=== PATIENT | male | born 1985 | race Caucasian/White ===

== ENCOUNTER 2020-02-18 10:27 | Emergency (ER) | payer BC, SELFPAY ==
--- NOTE | 2020-02-18 | XR_ITS ---
EXAMINATION: XR HAND, LEFT CLINICAL INFORMATION: Left hand injury with swelling and pain COMPARISON: None TECHNIQUE: PA, lateral, and oblique views of the left hand. FINDINGS: There appears be a nondisplaced fracture involving the base of the fourth metacarpal. No dislocation is evident. There is large amount soft tissue swelling seen about the dorsum of the hand and wrist. XR/XR hand LT min 3V IMPRESSION: Probable nondisplaced fracture base of the fourth metacarpal. Clinical correlation to site of injury is suggested as there is no indication within the requisition as to where the injury or pain is.
[2020-02-18 11:04] VITALS: BP 130/77; PULSE 90; RESP 18; TEMP 36.9; O2SAT 98; BMI 25.0
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
--- NOTE | 2020-02-18 11:48 | PC.NURSE ---
AMIRAH L HAND. SPLINTED BY PCT WITH GOOD DISTAL CMS
== END 2020-02-18 11:52 | disposition home or self-care (01) ==
PROVIDERS: Emergency Provider Emergency Medicine; PCP Family Medicine
DX: S62.345A Nondisplaced fracture of base of fourth metacarpal bone, left hand, initial encounter for closed fracture (principal); M79.642 Pain in left hand; V43.52XA Car driver injured in collision with other type car in traffic accident, initial encounter; Y93.9 Activity, unspecified; Y92.410 Unspecified street and highway as the place of occurrence of the external cause; Y99.9 Unspecified external cause status; Z79.899 Other long term (current) drug therapy
CPT/HCPCS: 29125; 73130; 99282; 99284

== ENCOUNTER → 2020-02-22 12:26 | Outpatient (BNVA) | payer BC, SELFPAY | PROVIDERS: Visit Provider Physician Assistant | DX: S62.345A Nondisplaced fracture of base of fourth metacarpal bone, left hand, initial encounter for closed fracture (principal) | CPT/HCPCS: 26600; 29085 ==

== ENCOUNTER 2020-03-15 11:09 | Outpatient (REF) | payer BC, SELFPAY ==
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
== END 2020-03-15 11:10 | disposition home or self-care (01) ==
LOC: HO.HOSX 11:09
PROVIDERS: Visit Provider Physician Assistant
DX: S62.309D Unspecified fracture of unspecified metacarpal bone, subsequent encounter for fracture with routine healing (principal)
CPT/HCPCS: 73130

== ENCOUNTER 2020-07-05 17:26 | Inpatient (IN) | payer BC, SELFPAY ==
--- NOTE | ~2020-07-05 | CT_ITS ---
EXAMINATION: CT ABDOMEN AND PELVIS WITH CONTRAST CLINICAL INFORMATION: RLQ abdominal pain, r/o acute appy COMPARISON: None TECHNIQUE: Multidetector volumetric images were obtained from the superior aspect of the liver through the pubic symphysis following administration 85 mL of Omnipaque 350 intravenous contrast. Sagittal and coronal reformatted images were obtained on the technologist's workstation. Oral contrast: No This CT examination was performed using dose optimization techniques as appropriate, variously including the following: *Automated exposure control *Adjustment of mA and/or kV according to patient size (this includes techniques or standardized protocols for targeted exams where dose is matched to indication/reason for exam; i.e. extremities or head) *Use of iterative reconstruction technique DLP: 501. mGy-cm FINDINGS: LUNG BASES: Minimal dependent atelectasis. LIVER, GALLBLADDER, AND BILIARY TREE: The liver is normal in size, shape, and attenuation. No focal hepatic lesion or biliary ductal dilatation is present. The gallbladder is unremarkable with no evidence of radiopaque gallstones, gallbladder wall thickening, or obvious pericholecystic inflammatory changes. PANCREAS: Unremarkable. SPLEEN: Unremarkable. ADRENAL GLANDS: Unremarkable. KIDNEYS AND URETERS: The kidneys are normal in size, shape, and attenuation. No hydronephrosis, hydroureter, or calculi seen. No perinephric stranding. BLADDER: Unremarkable. GASTROINTESTINAL TRACT: The appendix is markedly thickened (1.5 cm) with significant surrounding fat stranding and trace surrounding fluid. No intraperitoneal free air. Stomach, small bowel, and colon are otherwise normal in caliber without wall thickening or abnormal fat stranding. ABDOMINAL WALL: No significant hernia is appreciated. LYMPH NODES: Normal. VASCULAR: Unremarkable. PELVIC VISCERA: Unremarkable. OSSEOUS STRUCTURES: Unremarkable. CT/CT abdomen pelvis w con IMPRESSION: Acute appendicitis. A small amount of surrounding dense periappendiceal fluid may correspond to reactive inflammation or a contained perforation. No extraluminal bowel gas or free fluid.
[2020-07-05 17:44] VITALS: BP 127/80; PULSE 86; RESP 18; TEMP 37.4; O2SAT 100; BMI 25.6
--- NOTE | 2020-07-05 18:37 | ED_ITS ---
HPI - Abdominal Pain General Chief Complaint: Abdominal Pain Stated Complaint: Abdominal pain Time Seen by Provider: 07/05/20 18:03 Source: patient Mode of arrival: ambulatory Limitations: no limitations History of Present Illness HPI narrative: 35-year-old male previously healthy here with right-sided abdominal pain since yesterday. The patient tells me that yesterday he started to have some discomfort around his umbilicus but today the pain is migrated to his right lower abdomen. There is no associated nausea or vomiting. No fevers, chills, diarrhea, constipation or urinary symptoms. No previous surgical history. He last ate food at 12:00 o'clock today. Related Data Previous Rx's Medication Instructions Recorded cyclobenzaprine 10 mg PO TID PRN #14 tab 02/18/20 ibuprofen 600 mg PO Q6H PRN #30 tab 02/18/20 Allergies Allergy/AdvReac Type Severity Reaction Status Date / Time mateus [MATEUS] Allergy Mild ANAPHYLAXIS Verified 03/15/20 11:16 Review of Systems Review of Systems Yes all other systems are reviewed and are negative Constitutional: Reports no additional constitutional complaints, Denies body ache(s), Denies chills, Denies fever(s), Denies headache(s) and Denies weakness Eyes: Reports no additional eye complaints and Denies change in vision Reports system reviewed and no additional complaints, except as documented, Denies dizziness, Denies headache(s), Denies nasal congestion, Denies nasal discharge and Denies neck pain Cardiovascular: Reports no additional cardiovascular complaints, Denies chest pain, Denies leg edema and Denies dyspnea Respiratory: Reports no additional respiratory complaints, Denies cough and Denies dyspnea Gastrointestinal: Reports no additional gastrointestinal complaints, Reports abdominal pain, Denies diarrhea, Denies nausea and Denies vomiting Genitourinary: Denies urinary incontinence Musculoskeletal: Reports no additional musculoskeletal complaints, Denies back pain, Denies arthralgias, Denies joint swelling, Denies neck pain, Denies numbness and Denies tingling Skin/Breast: Reports system reviewed and no additional complaints, except as docu and Denies rash Reports system reviewed and no additional complaints, except as documented, Denies Abnormal speech present, Denies dizziness, Denies headache(s), Denies numbness, Denies tingling and Denies weakness Physical Exam Vital Signs: Vital Signs: Last Vital Signs Temp 99.4 F 07/05/20 17:44 Pulse 86 07/05/20 17:44 Resp 18 07/05/20 18:46 BP 127/80 07/05/20 17:44 Pulse Ox 100 07/05/20 17:44 Body Mass Index 25.6 Const: General: cooperative, healthy appearing, comfortable and no acute distress Orientation/consciousness: patient oriented x3 Limitations: no limitations HENMT: Head: Yes normal to inspection Ears: hearing grossly normal bilaterally General nose exam: Normal external nose present Face and sinus: Yes normal facial exam Mouth: Normal oral and palatal mucosa present Throat: Yes posterior oropharynx normal Eyes: General: appearance normal, both eyes and all related structures Pup ils: Equal, round and reactive pupils present Neck: Neck: Yes normal visual inspection Chest: Chest palpation & inspection: normal inspection of the chest Resp: Effort & Inspection: normal respiratory effort Auscultation: clear to auscultation bilaterally Cardio: Rate: regular rate Rhythm: regular rhythm Peripheral pulses: Peripheral pulses 2+ throughout GI: Inspection: Yes normal to inspection Palpation (GI): Soft to palpation and Tenderness to palpation present (GI) (Moderate right lower quadrant with rebound and guarding) Auscultation: normal bowel sounds Back/Spine/Pelvis: Thoracic/Lumbar Spine: thoracic and lumbar spine normal to inspection Skin: General skin exam: no rashes or lesions noted Neuro: General: patient oriented x3, no focal motor deficits and normal sensation to monofilament Cranial nerves: Yes Equal, round and reactive pupils present Cognition (Neuro): normal cognition Speech: No Abnormal speech present Gait exam (Neuro): Normal gait present Motor exam (neuro): 5/5 motor strength present throughout Extrem: General: Yes normal to inspection Course Course Course Narrative: 35-year-old male here with right lower quadrant abdominal pain since yesterday with no other associated symptoms. On exam has moderate tenderness with rebound and guarding. Will need labs, UA, COVID screen and CT abdomen and pelvis to rule out acute appendicitis. 2039-CT shows acute appendicitis. A small amount of surrounding dense periappendiceal fluid may correspond to reactive inflammation or contained pe rforation. No extraluminal bowel gas or free fluid. Patient has a leukocytosis of 12,000 with a shift. At this time infection is suspected. Blood cultures and lactic acid ordered. Antibiotics ordered. Discussed patient with Dr. Styles as who accepted admission. MDM - Abdominal Pain MDM Narrative Medical decision making narrative: appendicitis, cholecystitis, diverticulitis Medical Records Attestation: I reviewed the patient's medical records. Lab Data Attestation: I reviewed the patient's lab results. Result diagrams: 07/05/20 18:39 07/05/20 18:39 Labs: Lab Results 07/05/20 07/05/20 07/05/20 Range/Units 18:39 18:39 18:39 WBC 12.6 H (4.8-10.8) X10*3/uL RBC 4.60 (4.60-5.80) X10*6/uL Hgb 14.5 (14.0-18.0) g/dl Hct 44.0 (42-52) % MCV 95.7 (80-98) fL MCH 31.5 (27.0-33.0) pg MCHC 33.0 (31.0-36.0) g/dl RDW 13.1 (11.0-16.0) % Plt Count 218 (160-400) X10*3/uL MPV 10.4 (9.4-12.4) fL Immature Gran % (Auto) 0.4 (0.0-0.4) % Neut % (Auto) 76.7 H (45-73) % Lymph % (Auto) 14.0 L (20-40) % [place] % (Auto) 8.4 (2-11) % Eos % (Auto) 0.3 (0-4) % Baso % (Auto) 0.2 (0-2) % Lymph # (Auto) 1.8 (1.2-4.9) X10*3/uL [place] # (Auto) 1.1 (0.1-1.2) X10*3/uL Eos # (Auto) 0.0 (0.0-0.4) X10*3/uL Baso # (Auto) 0.0 (0.0-0.2) X10*3/uL Abs Immat Gran (auto) 0.05 H (0.00-0.03) X10*3/uL Absolute Neuts (auto) 9.6 H (2.0-8.3) X10*3/uL Absolute Nucleated RBC 0.000 (0.0-0.012) X10*3/uL Nucleated RBC % (auto) 0.0 (0.0-0.2) /100WBC Sodium 140 (135-145) mmol/L Potassium 4.3 (3.3-5.1) mmol/L Chloride 104 (96-108) mmol/L Carbon Dioxide 26 (22-29) mmol/L Anion Gap 14 (12-20) BUN 13 (9-16) mg/dL Creatinine 0.88 (0.5-1.4) mg/dL Estim Creat Clear Calc 137.3 Estimated GFR > 60 Random Glucose 100 (60-115) mg/dL Calcium 9.0 (8.4-10.2) mg/dL Total Bilirubin 0.6 (0.0-1.0) mg/dL Direct Bilirubin 0.3 (0.0-0.5) mg/dL AST 17 (5-37) U/L ALT 13 (0-40) U/L Alkaline Phosphatase 54 (39-117) U/L Total Protein 6.9 (6.5-8.0) g/dL Albumin 4.4 (3.5-5.0) g/dL COVID-19 (ESTRELLA) Negative (Negative) COVID-19 Clin Com See Note Imaging Data CT scan - abdomen: Attestation: I personally reviewed and interpreted this imaging study as follows: Radiologist's impression: IMPRESSION: Acute appendicitis. A small amount of surrounding dense periappendiceal fluid may correspond to reactive inflammation or a contained perforation. No extraluminal bowel gas or free fluid. Discharge Plan Discharge Clinical Impression: Acute appendicitis, Leukocytosis Patient Disposition: Admitted As Inpatient Prescriptions: No Action cyclobenzaprine 10 mg tablet 10 mg PO TID PRN (Reason: muscle spasm) Qty: 14 RF: 0 ibuprofen 600 mg tablet 600 mg PO Q6H PRN (Reason: pain) Qty: 30 RF: 0 PMFSH Past Medical History Attestation statement: The following information was validated with the patient. 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
[2020-07-05 18:46] VITALS: RESP 18
[2020-07-05 18:46] LABS: MANUAL DIFF FLAG NO
[2020-07-05] MEDS: Morphine Sulfate 2 MG/ML CARTRIDGE IVPUSH (18:46)
[2020-07-05 18:50] LABS: Basophils Percent Auto 0.2 % (0-2); Eosinophils Percent Auto 0.3 % (0-4); Hemoglobin 14.5 g/dl (14.0-18.0); Imm Gran Abs Auto 0.05 X10*3/uL (0.00-0.03); Imm Gran Pct Auto 0.4 % (0.0-0.4); Lymphocytes Absolute Auto 1.8 X10*3/uL (1.2-4.9); Mean Corpuscular Hemoglobin 31.5 pg (27.0-33.0); Mean Corpuscular Volume 95.7 fL (80-98); Mean Platelet Volume 10.4 fL (9.4-12.4); Monocytes Absolute Auto 1.1 X10*3/uL (0.1-1.2); Monocytes Percent Auto 8.4 % (2-11); Neutrophils Absolute Auto 9.6 X10*3/uL (2.0-8.3); Neutrophils Percent Auto 76.7 % (45-73); Platelet Count 218 X10*3/uL (160-400); Red Cell Distribution Width 13.1 % (11.0-16.0); White Blood Count 12.6 X10*3/uL (4.8-10.8)
[2020-07-05 19:01] LABS: IDNOW Serial# 9DD0AD1C
[2020-07-05 19:02] LABS: COVID-19 Test Negative (Negative)
[2020-07-05 19:07] LABS: Alanine Aminotransferase 13 U/L (0-40); Albumin Level 4.4 g/dL (3.5-5.0); Alkaline Phosphatase 54 U/L (39-117); Anion Gap 14 (12-20); Aspartate Amino Transferase 17 U/L (5-37); Bilirubin Direct 0.3 mg/dL (0.0-0.5); Bilirubin Total 0.6 mg/dL (0.0-1.0); Blood Urea Nitrogen 13 mg/dL (9-16); Carbon Dioxide 26 mmol/L (22-29); Chloride 104 mmol/L (96-108); Creatinine Clr Calc Pharmacy 137.3; Estimated Glomerular Filt Rate > 60; Glucose Random 100 mg/dL (60-115); Potassium 4.3 mmol/L (3.3-5.1); Sodium 140 mmol/L (135-145); Total Protein 6.9 g/dL (6.5-8.0)
[2020-07-05 21:44] LABS: Lactic Acid 0.8 mmol/L (0.5-2.0)
--- NOTE | 2020-07-05 21:54 | MHC.CM.ED ---
Met with pt. Inpatient for acute appendicitis. [employer]. AALY3. Requested contact be changed to his sister, Sarah Gutierrez ([phone]). Pt living situation is in transition and is currently living with his grandfather. Completed new HCP. [place] [facility] [place]/sister Sarah Gutierrez ([phone]). HCP signed and uploaded into [employer] and [facility]. D/C plan is home without services. Pt to arrange transportation with friend. CM to follow for D/C needs.
[2020-07-05 22:14] VITALS: BMI 25.4
[2020-07-05] MEDS: Piperacillin Sodium/Tazobactam 3.375 GM in 0.9 % Sodium Chloride 50 ML IV (22:22)
[2020-07-05] MEDS: Lactated Ringers 1,000 ML 100 ML IVCONT (22:22)
[2020-07-05] MEDS: 0.9 % Sodium Chloride Flush 3 ML SYRINGE IVFLUSH (22:23)
[2020-07-05 22:28] VITALS: BP 137/86; PULSE 88; RESP 18; TEMP 36.9; O2SAT 98
[2020-07-05] MEDS: Morphine Sulfate 4 MG/ML CARTRIDGE 3 MG IVPUSH (22:34)
[2020-07-05 23:08] VITALS: BP 140/84; PULSE 91; RESP 18; TEMP 37.1; O2SAT 97
[2020-07-06] VITALS (8 sets, daily range): BP systolic 117–135; BP diastolic 62–88; PULSE 83–102; RESP 16–18; TEMP 36.2–37.2; O2SAT 95–98
[2020-07-06] MEDS: Piperacillin Sodium/Tazobactam 3.375 GM in 0.9 % Sodium Chloride 50 ML IV ×2 (03:22→18:30)
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
--- NOTE | 2020-07-06 07:42 | PM.HPGS ---
History of Present Illness History of Present Illness Date of Service: 07/06/20 <Fatou Penaloza PA-C - Last Filed: 07/06/20 07:54> 07/06/20 <Ismael Styles MD - Last Filed: 07/06/20 15:37> Chief complaint: Acute appendicitis <INDIANA Ray Last Filed: 07/06/20 07:54> Narrative: Joe Crouch is a 35 year old healthy male who presented to the ED with c/o abdominal pain. Patient reports he was in his usual state of health until 2 days ago when developed mild central abdominal pain 2 days ago, however this became severe and sharp in nature and migrated to the RLQ last night. It was associated with subjective fever and sweats. He therefore decided to seek evaluation in the ED. He denies similar episodes of prior pain, nausea, vomiting, diarrhea or chills. Work up in the ED included a CT scan abd/pelvis which showed a thickened appendix with surrounding fat stranding. He also had a leukocytosis of 12.6. <Fatou Penaloza PA-C - Last Filed: 07/06/20 07:54> Review of Systems Constitutional: Constitutional: Reports fever(s) (subjective) <Fatou Penaloza PA-C - Last Filed: 07/06/20 07:54> Eyes: Eyes: Denies blurry vision <INDIANA Ray Last Filed: 07/06/20 07:54> ENT: Denies dizziness <Fatou Penaloza PA-C - Last Filed: 07/06/20 07:54> Cardiovascular: Cardiovascular: Denies chest pain, Denies syncope, Denies palpitations and Denies dyspnea <Fatou Penaloza PA-C - Last Filed: 07/06/20 07:54> Respiratory: Respiratory: Denies dyspnea <INDIANA Ray Last Filed: 07/06/20 07:54> Gastrointestinal: Gastrointestinal: Reports as per HPI, Denies constipation, Denies diarrhea, Denies nausea and Denies vomiting <INDIANA Ray Last Filed: 07/06/20 07:54> Genitourinary: Genitourinary: Denies hematuria and Denies dysuria <Fatou Penaloza PA-C Last Filed: 07/06/20 07:54> Integumentary/Breasts: Skin/Breast: Denies jaundice <Fatou Penaloza PA-C Last Filed: 07/06/20 07:54> Neurologic: Denies dizziness, Denies syncope and Denies focal weakness <Fatou Penaloza PA-C Last Filed: 07/06/20 07:54> Endocrine: Endocrine: Denies palpitations <Fatou Penaloza PA-C Last Filed: 07/06/20 07:54> PMF Past Medical History Medical History: Medical History No active medical problems <Fatou Penaloza PA-C Last Filed: 07/06/20 07:54> Social History Social History: Social History Household Members: Family Housing: House Alcohol intake: never Smoking Status: Never smoker Use of substances other than those prescribed or required for medical reasons: No Currently Displaying Signs/Symptoms of Drug Intoxication Withdrawal: No Have you been hit, kicked, punched, or otherwise hurt by someone within the past year? 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 <Fatou Penaloza PA-C Last Filed: 07/06/20 07:54> Meds Allergies/Adverse reactions: Allergies Allergy/AdvReac Type Severity Reaction Status Date / Time mateus [MATEUS] Allergy Mild ANAPHYLAXIS Verified 03/15/20 11:16 <Fatou Penaloza PA-C Last Filed: 07/06/20 07:54> Active Medications: Current Medications Generic Name Dose Route Start Last Admin Trade Name Freq PRN Reason Stop Dose Admin Acetaminophen 650 mg 07/05/20 20:45 Acetaminophen 325 Mg Tablet PO Q6H PRN Fever Piperacillin Sod/Tazobactam 50 mls @ 100 mls/hr 07/05/20 21:00 07/06/20 03:58 Sod 3.375 gm/ Sodium Chloride IV Infused Q6H GAVIN Infusion Lactated Ringer's 1,000 mls @ 100 mls/hr 07/05/20 21:00 07/06/20 07:39 Lr IVCONT Not Given .Q10H GAVIN Morphine Sulfate 3 mg 07/05/20 20:49 07/05/20 22:34 Morphine Sulfate 4 Mg/Ml Cartridge IVPUSH 3 mg Q3H PRN Administration fever Ondansetron HCl 4 mg 07/05/20 20:49 Ondansetron Hcl 4 Mg/2 Ml Vial IVPUSH Q8H PRN nausea Sodium Chloride 3 ml 07/06/20 00:00 07/06/20 07:40 0.9 % Sodium Chloride Flush 3 Ml Syringe IVFLUSH Not Given QSHIFT GAVIN <INDIANA Ray Last Filed: 07/06/20 07:54> Physical Exam Vital Signs: Vital Signs: Last Vital Signs Temp 98.7 F 07/05/20 23:08 Pulse 91 07/05/20 23:08 Resp 18 07/05/20 23:08 BP 140/84 H 07/05/20 23:08 Pulse Ox 97 07/05/20 23:08 Body Mass Index 25.4 <INDIANA Ray Last Filed: 07/06/20 07:54> Const: General: healthy appearing, comfortable, no acute distress and alert <INDIANA Ray Last Filed: 07/06/20 07:54> Orientation/consciousness: patient oriented x3 <INDIANA Ray Last Filed: 07/06/20 07:54> Eyes: Sclerae: sclerae normal <INDIANA Ray Last Filed: 07/06/20 07:54> Resp: Effort & Inspection: normal respiratory effort <INDIANA Ray Filed: 07/06/20 07:54> Auscultation: clear to auscultation bilaterally <Fatou MooneyYULISSA donahueTre Melendez Last Filed: 07/06/20 07:54> Cardio: Rate: regular rate <Fatou MooneyDAVID donahueFannie Melendez Last Filed: 07/06/20 07:54> Rhythm: regular rhythm <Fatou MooneyDAVID donahueFannie Melendez Last Filed: 07/06/20 07:54> GI: Inspection: Yes normal to inspection and No distended <Fatou MooneyDAVID donahueFannie Melendez Last Filed: 07/06/20 07:54> Palpation (GI): Soft to palpation, Tenderness to palpation present (GI) in the RLQ and at McBurney's point; Rovsing's sign negative and Rebound tenderness present (RLQ) <Fatou MooneyDAVID donahueFannie Melendez Last Filed: 07/06/20 07:54> Skin: Other: normal color, warm and dry <Fatou MooneyYULISSA donahueTre Melendez Last Filed: 07/06/20 07:54> General skin exam: no rashes or lesions noted <Fatou MooneyDAVID donahueFannie Melendez Last Filed: 07/06/20 07:54> Neuro: General: patient oriented x3 <Fatou MooneyDAVID donahueFannie Melendez Last Filed: 07/06/20 07:54> Extrem: General: Yes no clubbing, cyanosis or edema <YULISSA RayTre Melendez Last Filed: 07/06/20 07:54> Results Results Labs: Short CBC 07/05/20 Range/Units 18:39 WBC 12.6 H (4.8-10.8) X10*3/uL Hgb 14.5 (14.0-18.0) g/dl Hct 44.0 (42-52) % Plt Count 218 (160-400) X10*3/uL BMP 07/05/20 18:39 Sodium 140 Potassium 4.3 Chloride 104 Carbon Dioxide 26 BUN 13 Creatinine 0.88 Calcium 9.0 Liver Function 07/05/20 Range/Units 18:39 Total Bilirubin 0.6 (0.0-1.0) mg/dL Direct Bilirubin 0.3 (0.0-0.5) mg/dL AST 17 (5-37) U/L ALT 13 (0-40) U/L Alkaline Phosphatase 54 (39-117) U/L Albumin 4.4 (3.5-5.0) g/dL <INDIANA Ray Last Filed: 07/06/20 07:54> Additional studies: CT SCAN abd/pelvis: The appendix is markedly thickened (1.5 cm) with significant surrounding fat stranding and trace surrounding fluid. No intraperitoneal free air. Stomach, small bowel, and colon are otherwise normal in caliber without wall thickening or abnormal fat stranding. <INDIANA Ray Last Filed: 07/06/20 07:54> Assessment and Plan (1) Acute appendicitis: Status: Acute <INDIANA Ray Last Filed: 07/06/20 07:54> 35 year old healthy male who presented with abdominal pain that migrated to RLQ with CT scan with a thickened appendix with a leukocytosis. Clinical picture consistent with acute appendicitis. Treatment options discussed with patient including proceeding with laparoscopic appendectomy possible open versus observation and IV abx. Given he has had no improvement in his symptoms overnight with abx and the appendix is very thickened, it was recommended to proceed with appendectomy. technique of the procedure and risks and benefits were discussed. He elects to proceed. He will be added onto the OR schedule for today. <INDIANA Ray Last Filed: 07/06/20 07:54>
[2020-07-06] MEDS: Lactated Ringers 1,000 ML 100 ML IVCONT ×2 (08:19→15:50)
--- NOTE | 2020-07-06 08:25 | MHC.SHP ---
Pre-Procedural Eval Section B Chief Complaint: Acute appendicitis Allergies: Allergies Allergy/AdvReac Type Severity Reaction Status Date / Time mateus [MATEUS] Allergy Mild ANAPHYLAXIS Verified 03/15/20 11:16 Plan I have reviewed the history and physical and performed a pertinent physical examination on my patient. No changes have occurred unless specified.
--- NOTE | 2020-07-06 08:59 | HO.ANESPROP2 ---
[facility] Active Problems Active Problems: All Active Problems (Updated 07/05/20 @ 20:52 by Natasha Boss NP) Acute appendicitis (Acute) Leukocytosis (Acute) Fracture of metacarpal bone with routine healing (Acute) Fracture, metacarpal (Acute) Past Medical History Medical History No active medical problems Social History Social History Household Members: Family Housing: House Alcohol intake: never Smoking Status: Never smoker Use of substances other than those prescribed or required for medical reasons: No Currently Displaying Signs/Symptoms of Drug Intoxication Withdrawal: No Have you been hit, kicked, punched, or otherwise hurt by someone within the past year? 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 Allergies Allergy/AdvReac Type Severity Reaction Status Date / Time mateus [MATEUS] Allergy Mild ANAPHYLAXIS Verified 03/15/20 11:16 Active Medications: Current Medications Generic Name Dose Route Start Last Admin Trade Name Abimaelq PRN Reason Stop Dose Admin Acetaminophen 650 mg 07/05/20 20:45 Acetaminophen 325 Mg Tablet PO Q6H PRN Fever Piperacillin Sod/Tazobactam 50 mls @ 100 mls/hr 07/05/20 21:00 07/06/20 03:58 Sod 3.375 gm/ Sodium Chloride IV Infused Q6H GAVIN Infusion Lactated Ringer's 1,000 mls @ 100 mls/hr 07/05/20 21:00 07/06/20 08:19 Lr IVCONT 100 mls/hr .Q10H GAVIN Administration Morphine Sulfate 3 mg 07/05/20 20:49 07/05/20 22:34 Morphine Sulfate 4 Mg/Ml Cartridge IVPUSH 3 mg Q3H PRN Administration fever Ondansetron HCl 4 mg 07/05/20 20:49 Ondansetron Hcl 4 Mg/2 Ml Vial IVPUSH Q8H PRN nausea Sodium Chloride 3 ml 07/06/20 00:00 07/06/20 07:40 0.9 % Sodium Chloride Flush 3 Ml Syringe IVFLUSH Not Given QSHIFT [facility] Home Medications Medication Instructions Recorded Confirmed Last Taken Type No Known Home Meds 07/05/20 07/05/20 Unknown History Exam Exam Date and Time: July 06, 2020 0859 Height,Weight and Vital Signs: Height 6 ft 3 in Weight 25.5 kg Last Vital Signs Temp 99 F 07/06/20 08:13 Pulse 90 07/06/20 08:13 Resp 18 07/06/20 08:13 BP 117/76 07/06/20 08:13 Pulse Ox 96 07/06/20 08:13 Pertinent Lab Results Pertinent Lab Results: Laboratory Tests 07/05/20 07/05/20 07/05/20 18:39 18:39 18:39 WBC 12.6 H RBC 4.60 Hgb 14.5 Hct 44.0 MCV 95.7 MCH 31.5 MCHC 33.0 RDW 13.1 Plt Count 218 MPV 10.4 Immature Gran % (Auto) 0.4 Neut % (Auto) 76.7 H Lymph % (Auto) 14.0 L [place] % (Auto) 8.4 Eos % (Auto) 0.3 Baso % (Auto) 0.2 Lymph # (Auto) 1.8 [place] # (Auto) 1.1 Eos # (Auto) 0.0 Baso # (Auto) 0.0 Abs Immat Gran (auto) 0.05 H Absolute Neuts (auto) 9.6 H Absolute Nucleated RBC 0.000 Nucleated RBC % (auto) 0.0 Sodium 140 Potassium 4.3 Chloride 104 Carbon Dioxide 26 Anion Gap 14 BUN 13 Creatinine 0.88 Estim Creat Clear Calc 137.3 Estimated GFR > 60 Random Glucose 100 Lactic Acid Calcium 9.0 Total Bilirubin 0.6 Direct Bilirubin 0.3 AST 17 ALT 13 Alkaline Phosphatase 54 Total Protein 6.9 Albumin 4.4 COVID-19 (ESTRELLA) Negative COVID-19 Clin Com See Note 07/05/20 21:19 WBC RBC Hgb Hct MCV MCH MCHC RDW Plt Count MPV Immature Gran % (Auto) Neut % (Auto) Lymph % (Auto) [place] % (Auto) Eos % (Auto) Baso % (Auto) Lymph # (Auto) [place] # (Auto) Eos # (Auto) Baso # (Auto) Abs Immat Gran (auto) Absolute Neuts (auto) Absolute Nucleated RBC Nucleated RBC % (auto) Sodium Potassium Chloride Carbon Dioxide Anion Gap BUN Creatinine Estim Creat Clear Calc Estimated GFR Random Glucose Lactic Acid 0.8 Calcium Total Bilirubin Direct Bilirubin AST ALT Alkaline Phosphatase Total Protein Albumin COVID-19 (ESTRELLA) COVID-19 Clin Com Airway Mallampati Class: II TM Dist: >3cm Neck ROM: Full Assessment and Plan Assessment Anesthesia Assessment: Anesthesia Plan Discussed and Chart Reviewed Final Anesthetic Review NPO: Yes ASA Class: I and Emergency Final Preanesthetic Review: No Changes in Pt Med Stat, Meds/Allgs Chart Reviewed, Consent Obtained/Reviewed and Anes Risks/Benef Reviewed Patient Risk: Low Procedure Risk: Low Assessment/Block/Sedation in SS: Assess/Block/Sedation-SS Anesthetic Plan Anesthetic Plan: GA Disposition: Standard PACU
--- NOTE | 2020-07-06 10:50 | P.OP_ITS ---
Operative Note Operative Note Date of Service: 07/06/20 Narrative: Preop diagnosis: Acute appendicitis Postop diagnosis: Acute appendicitis with severe periappendiceal inflammatory changes; appendix partly retrocecal Procedure: Laparoscopic appendectomy Surgeon: Ismael Styles MD occupational therapy assistant: DAVID Penaloza The patient is a 35-year-old male admitted last night because of right- sided abdominal pain. He had a CAT scan which I had reviewed with the radiologist showing extensive inflammatory changes surrounding the appendix. The appendix was edematous, appeared to be partly retrocecal as well. All these findings are consistent with acute appendicitis. He was tender on examination. He wanted to proceed with surgery. He understood the technique of the procedure as well as the risks, benefits, and alternatives. The patient Was brought to the operating room andplaced supine on table under general anesthesia via endotracheal tube. aFoley catheter was inserted. The abdomen wasprepped and draped in theusual sterile fashion. A surgical time- out was done. The patient received Cefotan 2 g IV preoperatively. A short infraumbilical incision was made onthe skin using a blade 15. This was carried down through the to full-thickness of the skin and subcutaneous fat down to the fascia. The fascia was incised andthe peritoneum was entered. Through this incision a Turner port was introduced. Pneumoperitoneum was introduced to a pressure of 15 mm Hg and from here on the rest of theprocedure was done under vision with laparoscope. We used a 10 mm 0 degree laparoscope. With laparoscopic visualization we proceeded to insert another 5/12 new port in the left lower quadrant through a small stab incision. A 5 mm port was introduced through a small incision in the suprapubic margin. The patient was placed in head-down and [id number] position. The right lower quadrant was examined with the laparoscopic.The cecum was immediately seen and there was note of significant inflammatory changes at the base of the cecum. There was note of marked induration And separation around the area. There was note of matted tissue which appeared to be the severely inflamed appendix curled upon itself in an S shaped fashion. The appendix was veryindurated. We had to carefully dissect this appendix using the [place] dissector off of the rest of thatretroperitoneum. The appendix was noted to bepartly retrocecal with an S shaped tortuosity until it and down towards the right pelvis. I had to lift the cecummedially soallow visualization of the retrocecal area. I proceeded to divide the ligamentous attachments along the distal cecum and the proximal appendix. I used a LigaSure to divide these ligamentous attachments. This part of the procedure stalk some time as we had to proceed slowly in view of the acute inflammatory changes. By doing so however I was able to free up most of the proximal 3rd of the appendix.. I proceeded to identify the rest of the appendix by following this, and again the rest of the appendix was severely adherent with acute laboratory tissue all the way to the. I was able to carefully dissect the tip of the appendix and Iapplied a grasper on this. I lifted the tip and carefully divided the adhesions surrounding this using the LigaSure. I proceeded in a mm by mm fashion in a combination of blunt dissection with the [place] dissector as well as the LigaSure itself to continue to dissect the appendix starting from the tip proximally. By doing so s I was able to expose the appendix all the way proximally by carefully dividing its attached indurated mesentery. I continued define the mesentery and serially divided this with the LigaSure. We will continue with this dissection until I was able to free up most of the distal half of the Pentax. This allowed me to retract and check the appendix in a manner as to identify the rest of this all the way to the base. I continued to therefore dissect the rest of the appendix along its mesentery using the LigaSure until I wasable to completely free up the entire length of the appendix all the way to the base. Again there was note of significant inflammatory changes throughout the appendix and surrounding tissue including the terminal ileum and the cecum. However the cecum and the base of the appendix appeared all viable and non necrotic despite appearing erythematous. I therefore was able to apply a 30 mm endo ALKA stapler across the base of the appendix. This was fired and the appendix was transected at the base. I retrieved the appendix through an endobag through the umbilical incision. I reinserted all ports and insufflated. The thom were examined and this staple line appeared intact. I observed all 4 quadrants. There was no other pathology seen. There was no evidence of any bowel injury as well. I irrigated the area of dissection and suctioned out irrigant fluid. There was no bleeding or any evidence of any enteric leak. Once hemostasis was ensured I proceeded to desufflate 0the port sites. All ports were removedunder vision with laparoscope with umbilical port being removed last. The fascia of the umbilical incision was closed with [id number] Dexon 0 stitch. Skin closure was achieved on all incisions using Dexon 4-0 subcuticular sutures. Steri-Strips and dressings were applied All incisions were infiltrated with Marcaine 0.5% for postop analgesia and the procedure was completed. The patient tolerated well there were no complications noted. Initial And final counts of sponges and instruments were correct. Estimated blood loss was about 30 cc. The patient was extubated without difficulty and transferred to the recovery room with stable vital signs.
--- NOTE | 2020-07-06 10:57 | P.BOP_ITS ---
Brief Operative Note Date of Service: 07/06/20 <INDIANA Ray Last Filed: 07/06/20 10:58> Pre-op diagnosis: acute appendicitis <INDIANA Ray Last Filed: 07/06/20 10:58> Post-op diagnosis: same (suppurative) <INDIANA Ray Last Filed: 07/06/20 10:58> Procedure: laparoscopic appendectomy <INDIANA Ray Last Filed: 07/06/20 10:58> Implants: None <INDIANA Ray Last Filed: 07/06/20 10:58> Surgeon: FLAKO VILLEGAS MD <INDIANA Ray Last Filed: 07/06/20 10:58> Anesthesia: GETA <INDIANA Ray Last Filed: 07/06/20 10:58> Logging Truck Driver: Fatou Penaloza <INDIANA Ray Last Filed: 07/06/20 10:58> Estimated blood loss (mL): 20 <NIDIANA Ray Last Filed: 07/06/20 10:58> Urine output (mL): 80 <INDIANA Ray Last Filed: 07/06/20 10:58> Pathology: other (appendix) <INDIANA Ray Last Filed: 07/06/20 10:58> Condition: stable <INDIANA Ray Last Filed: 07/06/20 10:58> Disposition: PACU <INDIANA Ray Last Filed: 07/06/20 10:58>
[2020-07-06] MEDS: fentaNYL citrate/PF 100 MCG/2 ML VIAL 50 MCG IVPUSH (11:02)
[2020-07-06] MEDS: oxyCODONE HCl Immed Release 5 MG TABLET PO ×3 (11:13→20:50)
[2020-07-06] MEDS: Acetaminophen 325 MG TABLET 650 MG PO (11:13)
--- NOTE | 2020-07-06 15:40 | PM.EVENT ---
Event Note Date of Service: 07/06/20 Event Note: Patient seen postop - underwent laparoscopic appendectomy earlier Appears comfortable Seems to have good pain control Stable vital signs Abdomen soft Looks well Discussed with him intraop findings Plan to discharge home tomorrow Pain management
[2020-07-07] VITALS: BP 128/78; PULSE 94; RESP 17; TEMP 36.2; O2SAT 96
[2020-07-07] MEDS: diphenhydrAMINE HCL 25 MG TABLET PO (00:45)
[2020-07-07] MEDS: Piperacillin Sodium/Tazobactam 3.375 GM in 0.9 % Sodium Chloride 50 ML IV ×2 (00:46→05:39)
[2020-07-07] MEDS: oxyCODONE HCl Immed Release 5 MG TABLET PO ×2 (00:51→05:46)
[2020-07-07] MEDS: Lactated Ringers 1,000 ML 100 ML IVCONT (05:39)
[2020-07-07 07:04] VITALS: BP 102/57; PULSE 76; RESP 18; TEMP 36.4; O2SAT 96
--- NOTE | 2020-07-07 08:07 | PM.PNGS ---
Subjective Subjective Date of Service: 07/07/20 Interval history: Patient reports mild abdominal pain, had trouble sleeping last night. Tolerated his diet last night without nausea or vomiting. Feels ready for discharge to home. Physical Exam Vital Signs: Vital Signs: Last Vital Signs Temp 97.6 F 07/07/20 07:04 Pulse 76 07/07/20 07:04 Resp 18 07/07/20 07:04 BP 102/57 L 07/07/20 07:04 Pulse Ox 96 07/07/20 07:04 Body Mass Index 7.0 Const: General: cooperative, healthy appearing, comfortable, no acute distress, well developed, alert, awake and Physically active Neck: Neck: Yes normal visual inspection Resp: Effort & Inspection: normal respiratory effort, no cough and no respiratory distress GI: Other: soft, nondistended, incisions clean, dry and intact. Inspection: Yes normal to inspection Skin: Other: warm, dry and no rash Extrem: General: Yes no clubbing, cyanosis or edema Progress Note: A&P Assessment and plan (1) Acute appendicitis: Status: Acute Assessment and Plan: Patient is POD #1 s/p laparoscopic appendectomy. He tolerated the procedure well and is stable this morning. He tolerated a regular diet without nausea or vomiting. He is ready for discharge to home. Follow up with Dr. Styles in two weeks. Fall Risk Details Current Medications: Current Medications Generic Name Dose Route Start Last Admin Trade Name Freq PRN Reason Stop Dose Admin Acetaminophen 650 mg 07/05/20 20:45 Acetaminophen 325 Mg Tablet PO Q6H PRN Fever Lactated Ringer's 1,000 mls @ 100 mls/hr 07/05/20 21:00 07/07/20 05:39 Lr IVCONT 100 mls/hr .Q10H GAVIN Administration Piperacillin Sod/Tazobactam 50 mls @ 100 mls/hr 07/06/20 18:00 07/07/20 06:12 Sod 3.375 gm/ Sodium Chloride IV Infused Q6H GAVIN Infusion Morphine Sulfate 3 mg 07/05/20 20:49 07/05/20 22:34 Morphine Sulfate 4 Mg/Ml Cartridge IVPUSH 3 mg Q3H PRN Administration fever Ondansetron HCl 4 mg 07/05/20 20:49 Ondansetron Hcl 4 Mg/2 Ml Vial IVPUSH Q8H PRN nausea Oxycodone HCl 5 mg 07/06/20 11:52 07/07/20 05:46 Oxycodone Hcl Immed Release 5 Mg Tablet PO 5 mg Q4H PRN Administration Pain, Moderate (Pain Scale 4-6 Sodium Chloride 3 ml 07/06/20 00:00 07/07/20 00:52 0.9 % Sodium Chloride Flush 3 Ml Syringe IVFLUSH Not Given QSHIFT GAVIN Time Spent With Patient Time: Total time spent is greater than 50% in coordination of care (as documented) at patient's floor/unit and/or counseling patient: Time with patient: 15 - 24 minutes
--- NOTE | 2020-07-07 08:11 | MHC.CM.PN ---
Pt will DC home today with no services. Pt to self arrange transport
[2020-07-07 09:00] VITALS: O2SAT 97
[2020-07-07] MEDS: 0.9 % Sodium Chloride Flush 3 ML SYRINGE IVFLUSH (09:53)
--- NOTE | 2020-07-07 13:47 | HO.POSTANES ---
Post Anesthesia Evaluation Post Anesthesia Evaluation Vital Signs: Vital Signs Temp Pulse Resp BP Pulse Ox 07/07/20 09:00 97 07/07/20 07:04 97.6 F 76 18 102/57 L 96 Anesthesia: General Endotracheal-GETA Mental Status: Awake Pain Control: Satisfactory Nausea/Vomiting: None Hydration: Adequate Anesthesia-Related Issues: No Anes. Related Issues
--- NOTE | 2020-07-09 10:59 | P.DS_ITS ---
DS: Providers Provider Date of Service: 07/09/20 Date of admission: 07/05/20 20:45 Primary care physician: Mp Casper MD DS: Diagnosis Discharge Diagnosis (1) Acute appendicitis: Status: Acute DS: Medications Discharge Medications Home Medications: Previous Rx's Medication Instructions Recorded ibuprofen 600 mg PO TID PRN #30 tab 07/06/20 oxycodone-acetaminophen [Percocet] 1 tab PO Q4-6H PRN #20 tab 07/06/20 amoxicillin-pot clavulanate 1 tab PO Q8H #30 tab 07/07/20 [Augmentin] DS: Summary Hospital Course Hospital Course: BRIEF HPI: Joe Crouch is a 35 year old healthy male who presented to the ED with c/o abdominal pain. Patient reports he was in his usual state of health until 2 days ago when developed mild central abdominal pain 2 days ago, however this became severe and sharp in nature and migrated to the RLQ last night. It was associated with subjective fever and sweats. He therefore decided to seek evaluation in the ED. He denies similar episodes of prior pain, nausea, vomiting, diarrhea or chills. Work up in the ED included a CT scan abd/pelvis which showed a thickened appendix with surrounding fat stranding. He also had a leukocytosis of 12.6. HOSPITAL COURSE: He was admitted to the surgical service for further treatment of the acute appendicitis. He was started on IV zosyn, kept NPO and on PRN anal gesics. Treatment options were discussed with the patient including observation and IV abx therapy versus laparoscopic appendectomy possible open. The patient elected to proceed with surgery and was added onto the OR schedule for that day. On 07/06/20, a laparoscopic appendectomy was performed by Dr. Ismael Styles without complication. The patient tolerated the procedure well and was observed on the medical/surgical floor. On POD#1, he felt well. He was tolerating a solid diet and his pain was minimal and well controlled. His vitals were stable and his abdomen was benign with appropriate post op tenderness and dressings c/d/i. His initial blood cultures came back positive for Coag negative Staphylococcus. Repeat cultures were negative. He felt ready for discharge. He was discharged to home on 07/07/20 in stable condition. He was discharged on a PO course of Augmentin. Status at Discharge Functional status at discharge: independent ambulation Overall status at discharge: patient is progressing back to baseline Time Spent with Patient Time attestation: Total time spent providing and/or coordinating discharge services: Discharge coordination time: Less than 30 minutes Physical Exam Vital Signs: Vital Signs: Last Vital Signs Temp 97.6 F 07/07/20 07:04 Pulse 76 07/07/20 07:04 Resp 18 07/07/20 07:04 BP 102/57 L 07/07/20 07:04 Pulse Ox 97 07/07/20 09:00 Body Mass Index 7.0 Const: General: healthy appearing, comfortable, no acute distress and alert Orientation/consciousness: patient oriented x3 Eyes: Sclerae: sclerae normal Resp: Effort & Inspection: normal respiratory effort Cardio: Rate: regular rate GI: Inspection: No distended and Yes incision (dressings c/d/i) Palpation (GI): Soft to palpation, Tenderness to palpation present (GI) (mild, incisional), no guarding and not rigid Percussion: Yes normal to percussion Skin: General skin exam: no rashes or lesions noted Neuro: General: patient oriented x3 Extrem: General: Yes no clubbing, cyanosis or edema DS: Data Data Completed and Pending Pending studies at discharge: Pending at discharge 07/06/20 10:39 Surgical [PTH] Routine Labs on day of discharge: Preliminary micro results at discharge 07/05/20 21:38 Blood Culture - Preliminary Blood - Venous Bacillus species Coag negative Staphylococcus 07/05/20 21:19 Blood Culture - Preliminary Blood - Venous Coag negative Staphylococcus 07/07/20 04:47 Blood Culture - Preliminary Blood - Venous No growth after 48 hours. 07/07/20 04:47 Blood Culture - Preliminary Blood - Venous No growth after 48 hours. Discharge Plan Discharge Patient Disposition: Home, Self-Care Referrals: Mp Casper MD [Primary Care Provider] - Ismael Styles MD [Physician] - 2 Weeks Discharge Medications: New oxycodone-acetaminophen [Percocet] 5-325 mg tablet 1 tab PO Q4-6H PRN (Reason: pain) Qty: 20 RF: 0 ibuprofen 600 mg tablet 600 mg PO TID PRN (Reason: pain) Qty: 30 RF: 0 amoxicillin-pot clavulanate [Augmentin] 500-125 mg tablet 1 tab PO Q8H Qty: 30 RF: 0 Discharge Orders: Discharge Order (Routine); Ordered 07/07/20 Ordered By: Matthew Byrne Diet: advance to usual diet Activity on Discharge: No heavy lifting Stand Alone Forms: Patient Portal Discharge page, Work/School Release Activity Restrictions/Additional Instructions: If the incision area is tender, you may apply an ice pack for short intervals (No more than 20 minutes on, followed by at least 20 minutes off). Do not apply heat. Do not use creams, lotions, or topical antibiotics unless instructed to do so by your surgeon. These can cause infection or allergic reaction. Ok to shower 24 hours after your surgery. Remove bandaids in 2 days and replace. You have steri strips (small white cloth strips) covering your incision- these will fall off ~1 week. No heavy lifting (>10-20lbs)! Call Your Doctor If: -Your temperature exceeds 101.5? F -You experience excessive pain or swelling -You have an unexpected reaction to medication -You have excessive bleeding -You experience continued vomiting/nausea -Your incision begins to separate -Your incision shows signs of infection such as increased redness, swelling, excessive pain, drainage (light blood or clear fluid is normal) or heat Care Plan Goals: Return to baseline health following recovery period. Health Concerns: Acute appendicitis s/p laparoscopic appendectomy Plan of Treatment: Discharge to home, f/u in office with Dr. Styles in 2 weeks. Discharge Date/Time: 07/07/20 12:30
== END 2020-07-07 12:30 | disposition home or self-care (01) | DRG 225 ==
LOC: HO.ED 20:52 → HO.EDOVER 21:04 → HO.S3 21:12
PROVIDERS: Nurse Practitioner Family; Admitting Provider Surgery; Emergency Provider Internal Medicine; PCP Family Medicine; Visit Provider Surgery
PROC: 0DTJ4ZZ Resection of Appendix, Percutaneous Endoscopic Approach (ICD-10-PCS; CPT 44970; principal; 2020-07-06 09:10)
DX: K35.80 Unspecified acute appendicitis (principal); Z20.822 Contact with and (suspected) exposure to COVID-19
CPT/HCPCS: 36415; 74177; 80048; 80076; 83605; 85025; 87040; 87077; 87147; 87205; 87635; 88304; 88341; 88342; 88360; 96365; 96375; 99024; 99285; J1100; J1885; J2250; J2270; J2405; J2543; J3010; Q0163; Q9967

== ENCOUNTER → 2020-07-18 11:04 | Outpatient (BNVA) | payer BC, SELFPAY | PROVIDERS: PCP Family Medicine; Visit Provider Surgery ==

== ENCOUNTER 2020-08-15 06:06 | Inpatient (IN) | payer BC, SELFPAY ==
[2020-08-06 10:36] VITALS: BMI 25.6
--- NOTE | 2020-08-14 09:52 | P.CONAN_ITS ---
HPI - Anesthesia Eval Consult details Narrative: 35yo M for Right Hand-Assisted Laparoscopic Colon Resection, Poss open s/p lap appy 07/05/20 - intraop anesthesia record not available PMFSH Active Problems Active Problems: All Active Problems (Updated 07/18/20 @ 11:32 by Ismael Styles MD) Fracture, metacarpal (Acute) Fracture of metacarpal bone with routine healing (Acute) Status post laparoscopic appendectomy (Acute) Primary appendiceal adenocarcinoma (Acute) Past Medical History Medical History (Updated 08/20/20 @ 12:00 by Ismael Styles MD) Primary appendiceal adenocarcinoma Surgical History Surgical History (Updated 08/06/20 @ 10:25 by Summer Fam) History of appendectomy Social History Social History Household Members: Family Housing: House Are you a primary continuum of care manager to a significant other at home: No Do you presently have visiting nurse or other home services: No Alcohol intake: never Smoking Status: Never smoker Advance Directives Date on File: 07/05/20 service: No Current occupational status: employed 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
[2020-08-15] VITALS (12 sets, daily range): BP systolic 105–147; BP diastolic 40–92; PULSE 61–91; RESP 16–20; TEMP 36.3–37.6; O2SAT 94–98
[2020-08-15 06:58] LABS: COVID-19 Test Negative (Negative); IDNOW Serial# 9DD0AD1C
--- NOTE | 2020-08-15 07:14 | HO.ANESPROP2 ---
[facility] Active Problems Active Problems: All Active Problems (Updated 08/14/20 @ 09:54 by Bhumi Nichols) Fracture, metacarpal (Acute) Fracture of metacarpal bone with routine healing (Acute) Status post laparoscopic appendectomy (Acute) Primary appendiceal adenocarcinoma (Acute) Past Medical History Medical History (Updated 08/14/20 @ 09:54 by Bhumi Nichols) Primary appendiceal adenocarcinoma Family History Family history of problems with anesthesia: No Surgical History Surgical History (Updated 08/06/20 @ 10:25 by Summer Fam) History of appendectomy Social History Social History Household Members: Family Housing: House Are you a primary nurse healthcare manager to a significant other at home: No Do you presently have visiting nurse or other home services: No Alcohol intake: never Smoking Status: Never smoker Use of substances other than those prescribed or required for medical reasons: No Have you been hit, kicked, punched, or otherwise hurt by someone within the past year? 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 Meds Allergies Allergy/AdvReac Type Severity Reaction Status Date / Time mateus [MATEUS] Allergy Mild ANAPHYLAXIS Verified 08/15/20 06:55 Active Medications: Current Medications Generic Name Dose Route Start Last Admin Trade Name Freq PRN Reason Stop Dose Admin Lactated Ringer's 1,000 mls @ 100 mls/hr 08/15/20 06:15 Lr IVCONT .Q10H [facility] Home Medications Medication Instructions Recorded Confirmed Last Taken Type No Known Home Meds 08/06/20 08/06/20 Unknown History Exam Exam Date and Time: August 15, 2020 0714 Height,Weight and Vital Signs: Height 6 ft 3 in Weight 92.986 kg Last Vital Signs Temp 98.2 F 08/15/20 06:17 Pulse 83 08/15/20 06:17 Resp 20 08/15/20 06:17 BP 125/76 08/15/20 06:17 Pulse Ox 98 08/15/20 06:17 Pertinent Lab Results Pertinent Lab Results: Laboratory Tests 08/15/20 08/15/20 06:14 06:19 COVID-19 ([facility]RELLA) Negative COVID-19 Clin Com See Note Blood Type O Positive Airway Mallampati Class: I TM Dist: >3cm Neck ROM: Full Heart: ok Lungs: ok Assessment and Plan Assessment Anesthesia Assessment: Anesthesia Plan Discussed and Chart Reviewed Final Anesthetic Review NPO: Yes ASA Class: I Final Preanesthetic Review: No Changes in Pt Med Stat, Meds/Allgs Chart Reviewed, Consent Obtained/Reviewed and Anes Risks/Benef Reviewed Patient Risk: Low Procedure Risk: Intermediate Anesthetic Plan Anesthetic Plan: GA and Agree w/ Assess. and Plan
--- NOTE | 2020-08-15 07:20 | MHC.SHP ---
Pre-Procedural Eval Section B Chief Complaint: s/p bowel resection Allergies: Allergies Allergy/AdvReac Type Severity Reaction Status Date / Time mateus [MATEUS] Allergy Mild ANAPHYLAXIS Verified 08/15/20 06:55 Plan I have reviewed the history and physical and performed a pertinent physical examination on my patient. No changes have occurred unless specified.
[2020-08-15] MEDS: cefoTEtan disodium 2 GM in 0.9 % Sodium Chloride 50 ML IV (07:29)
[2020-08-15] MEDS: Lactated Ringers 1,000 ML 100 ML IVCONT (07:30)
--- NOTE | 2020-08-15 09:54 | PM.OP ---
Brief Operative Note Date of Service: 08/15/20 Pre-op diagnosis: appendiceal carcinoma Post-op diagnosis: same Procedure: hand assisted laparoscopic right colon resection Surgeon: Ismael Styles MD Anesthesia: GETA Was an Fiber Drier Operator used for this Procedure?: Yes Fiber Drier Operator: Matthew Byrne Estimated blood loss (mL): 75 Pathology: other (right colon) Condition: stable Disposition: PACU
[2020-08-15] MEDS: HYDROmorphone HCl 0.5 MG/0.5 ML SYRINGE IVPUSH ×2 (09:58→10:41)
--- NOTE | 2020-08-15 10:26 | P.OP_ITS ---
Operative Note Operative Note Date of Service: 08/15/20 Narrative: Preop diagnosis: Appendiceal carcinoma Postop diagnosis: The same Procedure: Hand assisted laparoscopic right colon resection Surgeon: Ismael Styles MD assistant professor of drama: Matthew Byrne MD The patient is a 35-year-old male who had undergone laparoscopic appendectomy for acute appendicitis last June,. Unfortunately, his path report showed a T1 appendiceal carcinoma with negative margins. I therefore explained to him that to complete treatment for this would require right colon resection to have the lymph node basin examined. I explained to him the technique of hand assisted right colon resection. I reviewed the risks, benefits, and alternatives and had given consent. He was brought to the operating room placed supine on the table under general anesthesia via endotracheal tube. A Richardson catheter was inserted. The abdomen was prepped and draped in the usual sterile fashion. A surgical time-out was done. The patient received Cefotan IV preoperatively. A short midline incision was made in the skin using a blade 15 starting from just above the umbilicus inferiorly. This was carried down through the full- thickness skin subcutaneous fat down to the fascia. The fascia was incised. The peritoneum was entered. We incised the fascia as to optimize the length of the skin incision. The Remberto wound retractor was then position. The GelPort with an insufflating port was then locked into the wound retractor. We insufflated and diverted the 10 mm, 30 degree laparoscope through the insufflating port. Under laparoscopic visualization inserted tender ports in the epigastric area as well as the left upper quadrant. We then proceeded to remove the insufflating port. I inserted my had through the GelPort. The patient was placed head down and [id number] position. With the camera in the epigastric port I proceeded to then examine the peritoneal cavity. The cecum was seen. I proceeded to follow this fluid to the right colon and the hepatic flexure and transverse colon. With the LigaSure in the working port, I proceeded to then reflect the cecum medially to expose the white line of Toldt. A proceeded to use the LigaSure to divide the ligamentous attachments of the cecum and the right colon superiorly all the way to he hepatic flexure. I continued to use the LigaSure to divide the hepato-colic ligaments at the hepatic flexure and all the way to the proximal transverse colon. We then proceeded to separate the transverse colon from some of the gastrocolic ligaments using the LigaSure as well. I proceeded to continue to mobilize the right colon by dividing thin filamentous attachments in the retroperitoneum using the LigaSure to allow as to completely reflect the right colon all the way to the midtransverse area medially. This also allowed us visualization of the duodenum which was the limit of our medial mobilization. I continued to divide some of the other residual filamentous bands in the retroperitoneum of the right colon. I extended the mobilization of the right colon to the cecum and divided ligamentous attachments of the terminal ileum at this area using the LigaSure. I tested the mobilization by reflecting the entire right colon and part of the transverse and this appeared to be sufficient enough to allow us to do the resection and anastomosis extracorporeally. I therefore desufflated and removed the GelPort. I was able to pull up the distal ileum-right colon all the way to mid transverse colon out into the field. I chose my proximal point of transection about 10 cm from the terminal ileum. I created a mesenteric defect here with blunt dissection using the hemostat. I then the ALKA 60 mm stapler to divide this. I then chose the distal point of resection in the transverse colon past the hepatic flexure and again used the hemostat to create a mesenteric window through this. I divided the transverse colon using an 80 mm ALKA stapler. I marked my planned line of resection of the mesentery of the right colon using electrocautery on the peritoneum.. This was marked in such a way as to allow a high ligation of the pedicle and include adequate lymphatic basin of the right colon. I then used the LigaSure to divide the mesentery attached to the right colon from both proximal and distal. I ended the division of the mesentery at the pedicle. I thinned out the pedicle using the LigaSure and controlled some bleeders as well with clamps. Once I had clearly defined and thinned out the pedicle, proceeded to apply Patricia clamps on this. I doubly ligated the stump using the Dexon 2-0 tie. I then divided the pedicle using Metzenbaum scissors and the entire specimen was sent. The clamps were then released. There was noted good hemostasis on the divided pedicle. I then proceeded to do the [id number] anastomosis. I opened up the apex of each staple line of both proximal and distal stumps. I aligned the ileal stump and the transverse colon together and positioned each arm of the ALKA 60 mm stapler in the lumen of each side. I locked the stapler at the anti-mesenteric border and made sure that there was no other tissue caught between the stapler. The stapler was fired to create the [id number] anastomosis. I then applied Allis clamps on the edges of the enterotomy to align this. I used the TA 60 mm stapler to close the enterotomy and complete our anastomosis. The staple lines were examined and these all appeared intact. The anastomotic site looked healthy and viable as well with good apparent vascular supply. I irrigated the staple line. I close the mesenteric defect with running Dexon 3-0 stitch on the peritoneum at the edge of the defect. I replaced the bowel loops back into the peritoneal cavity. I replaced the port and re-examined the entire abdomen laparoscopically. I positioned the omentum to cover the anastomosis. We observed for hemostasis and did some irrigation. There was no bleeding as we examined all 4 quadrants. Once hemostasis was ensured proceeded to then desufflate the port sites. I removed the GelPort and closed the fascia of this midline incision with a Maxon 1 running stitch. The skin incisions were closed with skin thom. All incisions were then infiltrated with Marcaine 0.5% for postop analgesia. The procedure was then completed The patient tolerated procedure well. There were no complications noted. Initial and final counts of sponges and instruments were correct. Estimated blood loss about 75 cc The patient extubated without difficulty and transferred to the recovery room with stable vital signs.
[2020-08-15] MEDS: oxyCODONE HCl Immed Release 5 MG TABLET 10 MG PO ×3 (11:17→20:36)
[2020-08-15] MEDS: Dextrose 5 % and 0.9 % NaCl 1,000 ML 100 ML IVCONT ×2 (11:19→20:36)
[2020-08-15] MEDS: Morphine Sulfate 4 MG/ML CARTRIDGE 3 MG IVPUSH (13:47)
--- NOTE | 2020-08-15 15:36 | MHC.CM.PN ---
NURSE UTILITIES MANAGER NOTE ELECTRONIC MEDICAL RECORD REVIEWED ALONG WITH CASE DISCUSSED WITH SURGEON , MET WITH PATIENT AND SOKE WITH THE SURGEON. PATIENT WAS HOSPITALIZED A LITTLE WHILE AGO FOR ACUTE APPENDECTOMY AND HAD IT REMOVED , WHEN HE WENT FOR FOLLOW UP TO THE SURGEONS OFFICE HER WAS TOLD THAT THERE WAS A TUMRORA APPENDICEAL CANCER) HE IS NOW OPERATIVE DAY S/P COLON RESECTION. 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 HE HAS NO DME SERVICES IN THE HOME. DISCHARGE PLAN INITIALLY HOME WITHOUT ANY SERVICES PCP Sabi CORTEZ PATIENT TO CALL FOR POST HOSPITAL DISCHARGE SURGICAL FOLLOW UP PER DISCHARGE INSTRUCTIONS TRANSPORTATION PATIEN TO SELF ARRANGE
--- NOTE | 2020-08-15 16:29 | PM.EVENT ---
Event Note Date of Service: 08/15/20 Event Note: seen postop underwent right colon resection this morning some incisional pain otherwise says he is ok looks comfortable stable VS abd soft good UO pain mgt increase Morphine to 4 mg
[2020-08-15] MEDS: Morphine Sulfate 4 MG/ML CARTRIDGE IVPUSH ×2 (17:48→21:49)
[2020-08-15] MEDS: 0.9 % Sodium Chloride Flush 3 ML SYRINGE IVFLUSH (21:50)
[2020-08-16] VITALS (7 sets, daily range): BP systolic 115–155; BP diastolic 72–86; PULSE 77–83; RESP 16–20; TEMP 36.4–37.6; O2SAT 92–96
[2020-08-16] MEDS: oxyCODONE HCl Immed Release 5 MG TABLET 10 MG PO ×5 (00:36→20:17)
[2020-08-16] MEDS: Morphine Sulfate 4 MG/ML CARTRIDGE IVPUSH ×4 (04:11→21:46)
[2020-08-16 04:50] LABS: Mean Corpuscular HGB Conc 32.5 g/dl (31.0-36.0); Mean Corpuscular Hemoglobin 31.6 pg (27.0-33.0); Mean Corpuscular Volume 97.3 fL (80-98); Mean Platelet Volume 10.3 fL (9.4-12.4); Platelet Count 239 X10*3/uL (160-400); Red Blood Count 4.11 X10*6/uL (4.60-5.80); Red Cell Distribution Width 13.9 % (11.0-16.0); White Blood Count 10.7 X10*3/uL (4.8-10.8)
[2020-08-16 05:17] LABS: Anion Gap 12 (12-20); Blood Urea Nitrogen 7 mg/dL (9-16); Calcium 8.6 mg/dL (8.4-10.2); Carbon Dioxide 27 mmol/L (22-29); Chloride 104 mmol/L (96-108); Creatinine Clr Calc Pharmacy 154.9; Estimated Glomerular Filt Rate > 60; Glucose Random 100 mg/dL (60-115); Sodium 139 mmol/L (135-145)
[2020-08-16] MEDS: Dextrose 5 % and 0.9 % NaCl 1,000 ML 100 ML IVCONT ×2 (06:14→15:37)
--- NOTE | 2020-08-16 08:06 | P.PNGS_ITS ---
Subjective Subjective Date of Service: 08/16/20 Interval history: Has incisional pain Denies flatus Richardson was DC did last night - was leaking Patient is able to void on his own Physical Exam Vital Signs: Vital Signs: Last Vital Signs Temp 99.6 F 08/16/20 08:00 Pulse 77 08/16/20 08:00 Resp 19 08/16/20 08:00 BP 116/73 08/16/20 08:00 Pulse Ox 93 08/16/20 08:00 Body Mass Index 25.6 Laboratory Results - last 24 hr 08/16/20 08/16/20 04:20 04:20 WBC 10.7 RBC 4.11 L Hgb 13.0 L Hct 40.0 L MCV 97.3 MCH 31.6 MCHC 32.5 RDW 13.9 Plt Count 239 MPV 10.3 Absolute Nucleated RBC 0.000 Nucleated RBC % (a uto) 0.0 Sodium 139 Potassium 4.0 Chloride 104 Carbon Dioxide 27 Anion Gap 12 BUN 7 L Creatinine 0.78 Estim Creat Clear Calc 154.9 Estimated GFR > 60 Random Glucose 100 Calcium 8.6 Const: General: comfortable and no acute distress Resp: Effort & Inspection: normal respiratory effort Cardio: Rhythm: regular rhythm GI: Other: Dressings dry, incisional tenderness appropriate the procedure Inspection: No distended Palpation (GI): Soft to palpation and no guarding Progress Note: A&P Assessment and plan (1) Primary appendiceal adenocarcinoma: Status: Acute Assessment and Plan: Status post right colon resection, postop day 1 Await return of GI function Ambulate today Incentive spirometry Clear liquids for now Richardson out Pain management Doing well overall Labs okay Fall Risk Details Current Medications: Current Medications Generic Name Dose Route Start Last Admin Trade Name Freq PRN Reason Stop Dose Admin Fentanyl 50 mcg 08/15/20 07:20 Fentanyl Citrate/Pf 100 Mcg/2 Ml Vial IVPUSH Q5M PRN Pain, Severe (Pain Scale 7-10) Hydromorphone HCl 0.5 mg 08/15/20 07:20 08/15/20 10:41 Hydromorphone Hcl 0.5 Mg/0.5 Ml Syringe IVPUSH 0.5 mg Q5M PRN Administration Pain, Severe (Pain Scale 7-10) Dextrose/Sodium Chloride 1,000 mls @ 100 mls/hr 08/15/20 10:00 08/16/20 06:14 D5ns IVCONT 100 mls/hr .Q10H GAVIN Administration Morphine Sulfate 4 mg 08/15/20 16:29 08/16/20 04:11 Morphine Sulfate 4 Mg/Ml Cartridge IVPUSH 4 mg Q4H PRN Administration Pain, Severe (Pain Scale 7-10) Ondansetron HCl 4 mg 08/15/20 07:20 Ondansetron Hcl 4 Mg/2 Ml Vial IVPUSH ONCE PRN Nausea and Vomiting Ondansetron HCl 4 mg 08/15/20 09:47 Ondansetron Hcl 4 Mg/2 Ml Vial IVPUSH Q8H PRN Nausea and Vomiting Oxycodone HCl 10 mg 08/15/20 16:29 08/16/20 05:35 Oxycodone Hcl Immed Release 5 Mg Tablet PO 10 mg Q4H PRN Administration Pain, Moderate (Pain Scale 4-6 Sodium Chloride 3 ml 08/15/20 16:00 08/16/20 07:21 0.9 % Sodium Chloride Flush 3 Ml Syringe IVFLUSH Not Given QSHIFT [facility] Time Spent With Patient Time: Total time spent is greater than 50% in coordination of care (as documented) at patient's floor/unit and/or counseling patient: Time with patient: 15 - 24 minutes
--- NOTE | 2020-08-16 16:20 | HO.POSTANES ---
Post Anesthesia Evaluation Post Anesthesia Evaluation Vital Signs: Vital Signs Temp Pulse Resp BP Pulse Ox 08/16/20 15:13 98 F 80 16 129/86 95 08/16/20 12:00 97.5 F 77 19 122/84 94 08/16/20 08:00 99.6 F 77 19 116/73 93 08/16/20 07:20 92 Anesthesia: General Endotracheal-GETA Mental Status: Awake Pain Control: Satisfactory Nausea/Vomiting: None Hydration: Adequate Anesthesia-Related Issues: No Anes. Related Issues
[2020-08-17] VITALS (7 sets, daily range): BP systolic 116–143; BP diastolic 74–92; PULSE 87–97; RESP 18–20; TEMP 36.3–37.1; O2SAT 95–97
[2020-08-17] MEDS: Morphine Sulfate 4 MG/ML CARTRIDGE IVPUSH ×4 (03:32→22:37)
[2020-08-17] MEDS: oxyCODONE HCl Immed Release 5 MG TABLET 10 MG PO ×4 (05:30→21:15)
[2020-08-17] MEDS: Dextrose 5 % and 0.9 % NaCl 1,000 ML 100 ML IVCONT ×2 (05:35→16:30)
--- NOTE | 2020-08-17 09:05 | PM.PNGS ---
Subjective Subjective Date of Service: 08/17/20 Interval history: Says he had a better night last night Tolerating clears Denies flatus however Sore on midline incision Physical Exam Vital Signs: Vital Signs: Last Vital Signs Temp 98.7 F 08/17/20 08:00 Pulse 90 08/17/20 08:00 Resp 18 08/17/20 08:00 BP 143/92 H 08/17/20 08:00 Pulse Ox 96 08/17/20 08:00 Body Mass Index 25.6 Const: Other: Looks well General: comfortable and no acute distress Resp: Effort & Inspection: normal respiratory effort Cardio: Rhythm: regular rhythm GI: Other: Incisions clean and dry, abdomen soft no guarding/rebound Inspection: No distended Progress Note: A&P Assessment and plan (1) Primary appendiceal adenocarcinoma: Status: Acute Assessment and Plan: Status post right colon resection Clinically looks well Adequate pain control Await full return GI function Ambulate Incentive spirometry Pain management Fall Risk Details Current Medications: Current Medications Generic Name Dose Route Start Last Admin Trade Name Freq PRN Reason Stop Dose Admin Fentanyl 50 mcg 08/15/20 07:20 Fentanyl Citrate/Pf 100 Mcg/2 Ml Vial IVPUSH Q5M PRN Pain, Severe (Pain Scale 7-10) Hydromorphone HCl 0.5 mg 08/15/20 07:20 08/15/20 10:41 Hydromorphone Hcl 0.5 Mg/0.5 Ml Syringe IVPUSH 0.5 mg Q5M PRN Administration Pain, Severe (Pain Scale 7-10) Dextrose/Sodium Chloride 1,000 mls @ 60 mls/hr 08/15/20 10:00 08/17/20 05:35 D5ns IVCONT 100 mls/hr .[id number] GAVIN Administration Morphine Sulfate 4 mg 08/15/20 16:29 08/17/20 08:39 Morphine Sulfate 4 Mg/Ml Cartridge IVPUSH 4 mg Q4H PRN Administration Pain, Severe (Pain Scale 7-10) Ondansetron HCl 4 mg 08/15/20 07:20 Ondansetron Hcl 4 Mg/2 Ml Vial IVPUSH ONCE PRN Nausea and Vomiting Ondansetron HCl 4 mg 08/15/20 09:47 Ondansetron Hcl 4 Mg/2 Ml Vial IVPUSH Q8H PRN Nausea and Vomiting Oxycodone HCl 10 mg 08/15/20 16:29 08/17/20 05:30 Oxycodone Hcl Immed Release 5 Mg Tablet PO 10 mg Q4H PRN Administration Pain, Moderate (Pain Scale 4-6 Sodium Chloride 3 ml 08/15/20 16:00 08/17/20 07:49 0.9 % Sodium Chloride Flush 3 Ml Syringe IVFLUSH Not Given QSHIFT GAVIN Time Spent With Patient Time: Total time spent is greater than 50% in coordination of care (as documented) at patient's floor/unit and/or counseling patient: Time with patient: 15 - 24 minutes
--- NOTE | 2020-08-17 11:48 | MHC.CM.PN ---
ELECTRONIC MEDICAL RECORD REVIEWED , CASE DISCUSSED ON MULTIPLE DISCIPLINARY ROUNDS, AND WITH STAFF NURSE, MET WITH PATIENT HE REPORTED THT HE FEELS MUCH BETTER TODAY AND HE WILL BE STarted on clear liquids for lunch , he is now post op day #! CONTINUES ON IV FLUIDS , IV ANALGESICS AND PATIENT REPORTS GOOD PAIN MANGEMENT CONTROL , HE IS TRYING TO GT UP MORE AND ENCOURaged to ambulate more and sit i the chair and use the incentive spirotermy. patient voice anxiousness in awaiting biopsy results, but was told by the surgeon it would take 3 business days , he feels he will be discharged and when he see the surgeon in one week he will then get the results, plan continues to monitor pain , tolerance to diet advancement and return of the gi function discharge anticipate discharge home no services pcp magdiel swanson [facility] transportation patient to self arrange .
[2020-08-17] MEDS: HYDROmorphone HCl 0.5 MG/0.5 ML SYRINGE IVPUSH (16:29)
[2020-08-17] MEDS: Zolpidem Tartrate 5 MG TABLET PO (22:32)
[2020-08-18 04:00] VITALS: BP 152/97; PULSE 85; RESP 18; TEMP 36.1; O2SAT 98
[2020-08-18 07:48] VITALS: BP 126/82; PULSE 78; RESP 18; TEMP 36.9; O2SAT 98
[2020-08-18] MEDS: 0.9 % Sodium Chloride Flush 3 ML SYRINGE IVFLUSH (08:07)
[2020-08-18] MEDS: Dextrose 5 % and 0.9 % NaCl 1,000 ML 60 ML IVCONT (08:08)
[2020-08-18] MEDS: oxyCODONE HCl Immed Release 5 MG TABLET 10 MG PO (08:10)
--- NOTE | 2020-08-18 09:29 | PM.PNGS ---
Subjective Subjective Date of Service: 08/18/20 Interval history: Has passed gas More comfortable Good pain control Says he has been ambulating Slept better last night Physical Exam Vital Signs: Vital Signs: Last Vital Signs Temp 98.5 F 08/18/20 07:48 Pulse 78 08/18/20 07:48 Resp 18 08/18/20 07:48 BP 126/82 08/18/20 07:48 Pulse Ox 98 08/18/20 07:48 Body Mass Index 25.6 Const: General: comfortable and no acute distress Resp: Effort & Inspection: normal respiratory effort Cardio: Rhythm: regular rhythm GI: Other: Incisions look clean and dry, minimally tender Inspection: No distended Palpation (GI): Soft to palpation, not firm, Tenderness to palpation present (GI) and no guarding Progress Note: A&P Assessment and plan (1) Primary appendiceal adenocarcinoma: Status: Acute Assessment and Plan: Status post right colectomy He looks well Passing flatus Diet advanced Possible DC home today Path pending Patient appears comfortable Fall Risk Details Current Medications: Current Medications Generic Name Dose Route Start Last Admin Trade Name Freq PRN Reason Stop Dose Admin Fentanyl 50 mcg 08/15/20 07:20 Fentanyl Citrate/Pf 100 Mcg/2 Ml Vial IVPUSH Q5M PRN Pain, Severe (Pain Scale 7-10) Hydromorphone HCl 0.5 mg 08/15/20 07:20 08/17/20 16:29 Hydromorphone Hcl 0.5 Mg/0.5 Ml Syringe IVPUSH 0.5 mg Q5M PRN Administration Pain, Severe (Pain Scale 7-10) Dextrose/Sodium Chloride 1,000 mls @ 60 mls/hr 08/15/20 10:00 08/18/20 08:08 D5ns IVCONT 60 mls/hr .[id number] GAVIN Administration Morphine Sulfate 4 mg 08/15/20 16:29 08/17/20 22:37 Morphine Sulfate 4 Mg/Ml Cartridge IVPUSH 4 mg Q4H PRN Administration Pain, Severe (Pain Scale 7-10) Ondansetron HCl 4 mg 08/15/20 07:20 Ondansetron Hcl 4 Mg/2 Ml Vial IVPUSH ONCE PRN Nausea and Vomiting Ondansetron HCl 4 mg 08/15/20 09:47 Ondansetron Hcl 4 Mg/2 Ml Vial IVPUSH Q8H PRN Nausea and Vomiting Oxycodone HCl 10 mg 08/15/20 16:29 08/18/20 08:10 Oxycodone Hcl Immed Release 5 Mg Tablet PO 10 mg Q4H PRN Administration Pain, Moderate (Pain Scale 4-6 Sodium Chloride 3 ml 08/15/20 16:00 08/18/20 08:07 0.9 % Sodium Chloride Flush 3 Ml Syringe IVFLUSH 3 ml QSHIFT GAVIN Administration Zolpidem Tartrate 5 mg 08/17/20 20:42 08/17/20 22:32 Zolpidem Tartrate 5 Mg Tablet PO 5 mg BEDTIME PRN Administration Insomnia Time Spent With Patient Time: Total time spent is greater than 50% in coordination of care (as documented) at patient's floor/unit and/or counseling patient: Time with patient: 15 - 24 minutes
[2020-08-18 11:42] VITALS: BP 114/78; PULSE 90; RESP 20; TEMP 36.2; O2SAT 96
--- NOTE | 2020-08-18 13:37 | MHC.CM.PN ---
PATIENT IS DISCHARGED HOME SELF CARE. RN AND PATIENT AWARE OF PLAN. PATIENT IS ARRANGING TRANSPORT HOME.
--- NOTE | 2020-08-18 13:56 | PM.EVENT ---
Event Note Date of Service: 08/18/20 Event Note: tolerating diet feels well has flatus abd soft pt says he is ready to be discharged ok to dc home instructions explained to pt
--- NOTE | 2020-08-20 11:59 | PM.DS ---
DS: Providers Provider Date of Service: 08/20/20 Date of admission: 08/15/20 06:06 Primary care physician: Mp Casper MD DS: Diagnosis Discharge Diagnosis (1) Primary appendiceal adenocarcinoma: Status: Acute Problem details: 35-year-old male who had underwent a laparoscopic appendectomy last June 2020 and was noted to have a primary appendiceal cancer. He therefore underwent hand assisted laparoscopic right colon resection last August 15, 2020. He tolerated procedure well. He was started on clear liquids postoperatively. He was admitted to the regular floor. He remained stable throughout his hospital stay. He did not pass flatus until his 2nd postop day. He was then advanced to regular food which he continued to tolerate. He remained afebrile during his hospital stay. At time of his discharge on 08/18/2020, he was tolerating regular diet and was passing flatus. He denied any significant pain at that time. DS: Medications Discharge Medications Home Medications: Previous Rx's Medication Instructions Recorded oxycodone-acetaminophen 5 mg-325 1 tab PO Q4H PRN #30 tab 08/18/20 mg tablet oxycodone-acetaminophen [Percocet] 1 - 2 tab PO Q4-6H PRN #30 tab 08/18/20 DS: Summary Time Spent with Patient Time attestation: Total time spent providing and/or coordinating discharge services: Discharge coordination time: Less than 30 minutes Physical Exam Vital Signs: Vital Signs: Last Vital Signs Temp 97.1 F 08/18/20 11:42 Pulse 90 08/18/20 11:42 Resp 20 08/18/20 11:42 BP 114/78 08/18/20 11:42 Pulse Ox 96 08/18/20 11:42 Body Mass Index 25.6 Const: General: comfortable and no acute distress Resp: Effort & Inspection: normal respiratory effort Cardio: Rhythm: regular rhythm GI: Other: All incisions well healing, not infected Palpation (GI): Soft to palpation and not firm DS: Data Data Completed and Pending Completed studies during hospitalization [Text1]: Pending at discharge 08/15/20 08:57 Surgical [PTH] Routine Procedures Resection of Appendix, Percutaneous Endoscopic Approach (07/05/20) Discharge Plan Discharge Patient Disposition: Home, Self-Care Discharge Diagnosis: appendiceal carcinoma Referrals: Mp Casper MD [Primary Care Provider] - 1 Week Ismael Styles MD [Physician] - 1 Week Discharge Medications: New oxycodone-acetaminophen [Percocet] 5-325 mg tablet 1 - 2 tab PO Q4-6H PRN (Reason: pain) Qty: 30 RF: 0 No Action oxycodone-acetaminophen [Percocet] 5-325 mg tablet 1 tab PO Q4H PRN (Reason: pain) Qty: 30 RF: 0 Discharge Orders: Discharge Order (Routine); Ordered 08/18/20 Ordered By: Ismael Styles Activity on Discharge: No heavy lifting Stand Alone Forms: Patient Portal Discharge page Activity Restrictions/Additional Instructions: If the incision area is tender, you may apply an ice pack for short intervals (No more than 20 minutes on, followed by at least 20 minutes off). Do not apply heat. Do not use creams, lotions, or topical antibiotics unless instructed to do so by your surgeon. These can cause infection or allergic reaction. OK to shower No lifting more than 15 lb No strenuous activities Call the office for follow-up in 2 weeks - with Dr. Styles Call Your Doctor If: -Your temperature exceeds 101.5? F -You experience excessive pain or swelling -You have an unexpected reaction to medication -You have excessive bleeding -You experience continued vomiting/nausea -Your incision begins to separate -Your incision shows signs of infection such as increased redness, swelling, excessive pain, drainage (light blood or clear fluid is normal) or heat Care Plan Goals: Pain management No lifting allowed Health Concerns: await path report Plan of Treatment: ffup in office no lifting Assessment: doing well clinically Discharge Date/Time: 08/18/20 14:15
== END 2020-08-18 14:15 | disposition home or self-care (01) | DRG 221 ==
LOC: HO.SSSA 09:54 → HO.S3 10:09
PROVIDERS: Admitting Provider Surgery; PCP Family Medicine; Visit Provider Surgery
DX: C18.1 Malignant neoplasm of appendix (principal); Z20.822 Contact with and (suspected) exposure to COVID-19
CPT/HCPCS: 36415; 80048; 85027; 86850; 86900; 86901; 87635; 88304; 88309; 99024; J0131; J1100; J1170; J2250; J2270; J2405; J3010

== ENCOUNTER → 2020-08-27 11:43 | Outpatient (BNVA) | payer BC, SELFPAY | PROVIDERS: PCP Family Medicine; Visit Provider Surgery ==

== ENCOUNTER → 2020-08-28 15:13 | Outpatient (BNVA) | payer BC, SELFPAY | PROVIDERS: PCP Family Medicine; Referring Provider Family Medicine; Visit Provider Surgery ==

== ENCOUNTER → 2020-09-27 11:53 | Outpatient (BNVA) | payer BC, SELFPAY | PROVIDERS: PCP Family Medicine; Referring Provider Family Medicine; Visit Provider Surgery ==